=== PATIENT | male | born 1990 | race Caucasian/White ===

== ENCOUNTER 2019-09-27 11:38 | Emergency (ER) | payer MEDICAID ==
[~2019-09-27] VITALS: Ht 177.8 cm; Wt 81.6 kg
[2019-09-27 11:46] VITALS: Ht 177.8 cm; Wt 81.6 kg
[2019-09-27 12:27] LABS: CALCIUM 8.9 mg/dL (8.5-10.1); CARBON DIOXIDE 16.9 mmol/L (21-32); CHLORIDE SERUM 102 mmol/L (98-107); CREATININE SERUM 1.3 mg/dL (0.7-1.3); GFR1 > 60 mL/min; GLUCOSE SERUM 144 mg/dL (74-106); POTASSIUM SERUM 3.2 mmol/L (3.5-5.1); SODIUM SERUM 140 mmol/L (136-145)
[2019-09-27 12:29] LABS: BASOPHIL % 0.6 % (0-2); PLATELET COUNT 371 x10^3mcL (130-400)
[2019-09-27 12:31] LABS: RED CELL DISTRIBUTION WIDTH 15.3 % (11.5-14.5)
[2019-09-27 16:58] VITALS: BP 117/74
== END 2019-09-27 16:58 | disposition home or self-care (01) ==
LOC: ED 11:38
PROVIDERS: Emergency Medicine
DX: G24.09 Other drug induced dystonia (principal); T43.4X5A Adverse effect of butyrophenone and thiothixene neuroleptics, initial encounter; F15.10 Other stimulant abuse, uncomplicated; F12.10 Cannabis abuse, uncomplicated; Y92.89 Other specified places as the place of occurrence of the external cause
CPT/HCPCS: J1200; J2060; J7030

== ENCOUNTER 2020-05-23 17:05 | Emergency (ER) | payer MEDICAID ==
[~2020-05-23] VITALS: Ht 172.7 cm; Wt 81.6 kg
[2020-05-23 17:15] VITALS: Ht 172.7 cm; Wt 81.6 kg
[2020-05-23 19:37] LABS: UA SPECIFIC GRAVITY >=1.030 (1.005-1.035); microscopic required? YES; urine erythrocyte NEGATIVE (NEGATIVE)
[2020-05-23 19:55] LABS: AMPHETAMINE QUAL UR POSITIVE (See below)
[2020-05-23 20:08] LABS: BASOPHIL % 0.5 % (0-2)
[2020-05-23 20:09] LABS: PLATELET COUNT 452 x10^3mcL (130-400); RED CELL DISTRIBUTION WIDTH 18.5 % (11.5-14.5)
[2020-05-23 20:10] LABS: CALCIUM 8.4 mg/dL (8.5-10.1); CARBON DIOXIDE 24.7 mmol/L (21-32); CHLORIDE SERUM 103 mmol/L (98-107); GFR1 > 60 mL/min; GLUCOSE SERUM 118 mg/dL (74-106); POTASSIUM SERUM 3.1 mmol/L (3.5-5.1); SODIUM SERUM 143 mmol/L (136-145)
[2020-05-23 20:14] LABS: ALBUMIN 3.6 g/dL (3.4-5.0); ALKALINE PHOSPHATASE 153 U/L (46-116); ALT/SGPT 58 U/L (16-63); AST/SGOT 50 U/L (15-37); BILIRUBIN TOTAL 0.29 mg/dL (0.20-1.00); TOTAL PROTEIN, SERUM 7.7 g/dL (6.4-8.2)
[2020-05-26] MEDS ORDERED: SEROQUEL400 M1 PO (00:11)
[2020-05-26] MEDS ORDERED: TRAZODONE100 MG PO (00:12)
[2020-05-26 05:16] LABS: C REACTIVE PROTEIN 0.8 mg/dL (<=0.9)
[2020-05-26 09:00] VITALS: BP 126/64
== END 2020-05-26 09:00 | disposition home or self-care (01) ==
LOC: ED 17:05 → MU 05-25 23:10
PROVIDERS: Emergency Medicine; Internal Medicine
DX: U07.1 COVID-19 (principal); R45.851 Suicidal ideations; E83.51 Hypocalcemia; F10.19 Alcohol abuse with unspecified alcohol-induced disorder; F15.959 Other stimulant use, unspecified with stimulant-induced psychotic disorder, unspecified; Y90.0 Blood alcohol level of less than 20 mg/100 ml; E87.6 Hypokalemia; R74.0 Nonspecific elevation of levels of transaminase and lactic acid dehydrogenase [LDH]; F31.9 Bipolar disorder, unspecified; T43.212A Poisoning by selective serotonin and norepinephrine reuptake inhibitors, intentional self-harm, initial encounter; T45.0X2A Poisoning by antiallergic and antiemetic drugs, intentional self-harm, initial encounter; Y92.9 Unspecified place or not applicable
CPT/HCPCS: G0378; G0480; J3490; Q0092; U0003-CS